=== PATIENT | male | born 1995 | race Caucasian/White ===

== ENCOUNTER 2016-09-20 07:10 | Emergency (ER) | payer OTHER ==
[2016-09-20 07:14] VITALS: BP 133/82; PULSE 70; RESP 16; TEMP 97.5; O2SAT 95
--- NOTE | 2016-09-20 07:18 | EDPHY ---
H & P Stated Complaint: cough/mucus Time Seen by Provider: 09/20/16 07:12 HPI/ROS: CHIEF COMPLAINT: Productive cough HISTORY OF PRESENT ILLNESS: The patient presents to the ED with a 2 day history of productive cough and mild dyspnea. The patient denies significant past medical history. He denies fever or sore throat. The patient reports moderate symptoms. The patient denies asymmetric calf pain or swelling. He denies history of fall or trauma. REVIEW OF SYSTEMS: A comprehensive 10 point review of systems is otherwise negative aside from elements mentioned in the history of present illness. Source: Patient Exam Limitations: No limitations - Personal History Current Tetanus/Diphtheria Vaccine: Yes - Medical/Surgical History Hx Asthma: No Hx Chronic Respiratory Disease: No Hx Diabetes: No Hx Cardiac Disease: No Hx Renal Disease: No Hx Cirrhosis: No Hx Alcoholism: No Hx HIV/AIDS: No Hx Splenectomy or Spleen Trauma: No Other PMH: denies - Social History Smoking Status: Current some day smoker - Physical Exam Exam: General Appearance: Alert, no distress Eyes: Pupils equal and round no pallor or injection ENT, Mouth: Mucous membranes moist Respiratory: Rhonchorous breath sounds right lung base Cardiovascular: Regular rate and rhythm Gastrointestinal: Abdomen is soft and nontender, no masses, bowel sounds normal Neurological: A&O, normal motor function, normal sensory exam, normal cranial nerves Skin: Warm and dry, no rashes Musculoskeletal: Neck is supple nontender Extremities: symmetrical, full range of motion Constitutional: Initial Vital Signs Temperature (C) 36.4 C 09/20/16 07:11 Heart Rate 70 09/20/16 07:11 Respiratory Rate 16 09/20/16 07:11 Blood Pressure 133/82 H 09/20/16 07:11 O2 Sat (%) 95 09/20/16 07:11 O2 Delivery Mode Room Air Allergies/Adverse Reactions: No Allergies [NKDA] Allergy (Verified 09/20/16 07:11) Home Medications: Medication Instructions Recorded AZITHROMYCIN [Z-PACK] 250 mg PO DAILY #1 packet 09/20/16 Albuterol [Ventolin Hfa Inhaler] 2 puffs IH QID PRN #1 mdi 09/20/16 Medical Decision Making ED Course/Re-evaluation: The patient presents to the ED with a bronchitis versus early subtle basilar pneumonia. The patient will be started on antibiotics and given a prescription for an albuterol inhaler. The patient is instructed to return to the ED for worsening symptoms or other concerns. The patient does have stable vital signs the emergency department. There is nothing to suggest a significant pneumonia based upon his vital signs. The patient has nothing to suggest traumatic injury such as pneumothorax based upon his history. Differential Diagnosis: Differential diagnosis considered includes asthma, bronchitis, pneumonia Departure - Departure Disposition: Home, Routine, Self-Care Condition: Good Instructions: Acute Bronchitis (ED) Additional Instructions: 1. Please take antibiotics as directed. 2. Please use inhaler to every 4 hours as needed for cough. 3. Please return to the ED for markedly worsening symptoms or other concerns. Referrals: NONE *PRIMARY CARE P,. [Primary Care Provider] - As per Instructions
== END 2016-09-20 07:35 | disposition home or self-care (01) ==
DX: J20.9 Acute bronchitis, unspecified (principal); F17.200 Nicotine dependence, unspecified, uncomplicated

== ENCOUNTER 2017-09-01 17:43 | Emergency (ER) | payer OTHER ==
[2017-09-01 17:54] VITALS: BP 125/74
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
== END 2017-09-01 19:09 | disposition home or self-care (01) ==
DX: S60.221A Contusion of right hand, initial encounter (principal); F17.200 Nicotine dependence, unspecified, uncomplicated; W22.8XXA Striking against or struck by other objects, initial encounter; Y99.8 Other external cause status
CPT/HCPCS: A4565

== ENCOUNTER 2018-06-03 15:09 | Emergency (ER) | payer OTHER ==
[2018-06-03] MEDS ORDERED: ONDANSETRON 4 MG/2 ML VIAL ONE (15:35)
[2018-06-03] MEDS ORDERED: NS 1,000 ML IV ONE ×3 (15:36→16:59)
[2018-06-03] MEDS ORDERED: ONDANSETRON 4 MG/2 ML VIAL IVP ONE (15:36)
[2018-06-03] MEDS ORDERED: fentaNYL 100 MCG/2 ML INJ IVP ONE (15:57)
[2018-06-03] MEDS ORDERED: KETOROLAC 15 MG/1 ML SDV IVP ONE (15:57)
--- NOTE | 2018-06-03 16:00 | EDPHY ---
H & P Stated Complaint: n/v/abd pain Time Seen by Provider: 06/03/18 15:36 HPI/ROS: HPI The patient presents with abdominal pain, nausea, vomiting, diarrhea. He was feeling well earlier in the day today, ate a breakfast burrito. At noon he had quick onset of stomach pain which was sharp and diffuse quickly followed by nausea, vomiting, diarrhea. The nausea is nonbloody, nonbilious. The diarrhea is watery. He is having episodes of vomiting and diarrhea occurring about every 10 min now. He generally feels chilled though has not had a fever. His pain is in his right upper quadrant and right flank and is sharp in nature and intermittent. There are no alleviating or exacerbating factors. He rates the pain as severe.. REVIEW OF SYSTEMS 10 systems were reviewed and negative with the exception of the elements mentioned in the history of present illness. PMHx: Healthy, no diabetes, no hypertension Soc Hx: [employer] student PHYSICAL General Appearance: Alert, no distress Eyes: Pupils equal and round no pallor or injection ENT, Mouth: Mucous membranes dry Respiratory: Hyperventilating, There are no retractions, lungs are clear to auscultation Cardiovascular: Regular rate and rhythm Gastrointestinal: Abdomen is soft and non-tender, no masses, bowel sounds normal , no flank tenderness bilaterally Neurological: A&O, moves all extremities Skin: Warm and dry, no rashes Musculoskeletal: Neck is supple non tender Extremities: symmetrical, full range of motion Psychiatric: Patient is oriented X 3, there is no agitation Source: Patient Exam Limitations: No limitations - Personal History Current Tetanus/Diphtheria Vaccine: Yes Current Tetanus Diphtheria and Acellular Pertussis (TDAP): Yes - Medical/Surgical History Hx Asthma: No Hx Chronic Respiratory Disease: No Hx Diabetes: No Hx Cardiac Disease: No Hx Renal Disease: No Hx Cirrhosis: No Hx Alcoholism: No Hx HIV/AIDS: No Hx Splenectomy or Spleen Trauma: No Other PMH: denies - Social History Smoking Status: Current some day smoker Constitutional: Initial Vital Signs Temperature (C) 36.8 C 06/03/18 15:17 Heart Rate 91 06/03/18 15:17 Respiratory Rate 30 H 06/03/18 15:17 Blood Pressure 75/67 L 06/03/18 15:17 O2 Sat (%) 96 06/03/18 15:17 O2 Delivery Mode Room Air Allergies/Adverse Reactions: No Allergies [NKDA] Allergy (Verified 06/03/18 15:16) Home Medications: Medication Instructions Recorded Ondansetron Odt [Zofran Odt 4 mg 4 mg PO Q4 PRN #10 tab 06/03/18 (*)] Medical Decision Making Differential Diagnosis: This is a 22-year-old male who presents with about 4 hr of nausea, vomiting, diarrhea, abdominal pain. Here, he is hypotensive, he does have abdominal pain though abdominal exam is benign. He appears dry. Plan for IV fluids, medication for his emesis and pain. We will check basic labs. Differential diagnosis includes gastroenteritis, biliary colic, cholecystitis, renal colic. In the emergency department, patient ultimately received a total of 3 L of IV fluid. He was able to provide a urine sample which showed 1+ ketones without any hematuria. Labs were otherwise unremarkable. He appeared to be hemoconcentrated on his CBC. He does have a leukocytosis which could be related to an infectious gastroenteritis or stress response vomiting. He was observed for about 3 hr in the ER. He was able to tolerate fluids. He had no ongoing abdominal pain or tenderness on exam. He felt comfortable being discharged and was sent home with his roommate. He will be given a prescription for Zofran. - Data Points Laboratory Results: Laboratory Results 06/03/18 15:25 06/03/18 15:25 06/03/18 06/03/18 06/03/18 18:40 15:25 15:25 WBC 16.65 10^3/uL H 10^3/uL (3.80-9.50) RBC 5.62 10^6/uL 10^6/uL (4.40-6.38) Hgb 18.0 g/dL H g/dL (13.7-17.5) Hct 51.3 % H % (40.0-51.0) MCV 91.3 fL fL (81.5-99.8) MCH 32.0 pg pg (27.9-34.1) MCHC 35.1 g/dL g/dL (32.4-36.7) RDW 13.0 % % (11.5-15.2) Plt Count 278 10^3/uL 10^3/uL (150-400) MPV 8.8 fL fL (8.7-11.7) Neut % (Auto) 87.3 % H % (39.3-74.2) Lymph % (Auto) 5.5 % L % (15.0-45.0) [place] % (Auto) 6.5 % % (4.5-13.0) Eos % (Auto) 0.2 % L % (0.6-7.6) Baso % (Auto) 0.2 % L % (0.3-1.7) Nucleat RBC Rel Count 0.0 % % (0.0-0.2) Absolute Neuts (auto) 14.53 10^3/uL H 10^3/uL (1.70-6.50) Absolute Lymphs (auto) 0.91 10^3/uL L 10^3/uL (1.00-3.00) Absolute Monos (auto) 1.09 10^3/uL H 10^3/uL (0.30-0.80) Absolute Eos (auto) 0.03 10^3/uL 10^3/uL (0.03-0.40) Absolute Basos (auto) 0.04 10^3/uL 10^3/uL (0.02-0.10) Absolute Nucleated RBC 0.00 10^3/uL 10^3/uL (0-0.01) Immature Gran % 0.3 % % (0.0-1.1) Immature Gran # 0.05 10^3/uL 10^3/uL (0.00-0.10) Sodium 139 mEq/L mEq/L (135-145) Potassium 4.0 mEq/L mEq/L (3.5-5.2) Chloride 106 mEq/L mEq/L (97-110) Carbon Dioxide 20 mEq/l L mEq/l (22-31) Anion Gap 13 mEq/L mEq/L (6-14) BUN 17 mg/dL mg/dL (7-23) Creatinine 0.9 mg/dL mg/dL (0.7-1.3) Estimated GFR > 60 Glucose 136 mg/dL H mg/dL (70-100) Calcium 10.0 mg/dL mg/dL (8.5-10.4) Total Bilirubin 1.1 mg/dL mg/dL (0.1-1.4) AST 20 IU/L IU/L (17-59) ALT 29 IU/L IU/L (21-72) Alkaline Phosphatase 92 IU/L IU/L (38-126) Total Protein 8.3 g/dL H g/dL (6.3-8.2) Albumin 5.0 g/dL g/dL (3.5-5.0) Lipase 158 IU/L IU/L (23-300) Urine Color YELLOW Urine Appearance HAZY Urine pH 6.0 (5.0-7.5) Ur Specific [place] 1.026 (1.002-1.030) Urine Protein NEGATIVE (NEGATIVE) Urine Ketones 1+ H (NEGATIVE) Urine Blood NEGATIVE (NEGATIVE) Urine Nitrate NEGATIVE (NEGATIVE) Urine Bilirubin NEGATIVE (NEGATIVE) Urine Urobilinogen NEGATIVE EU EU (0.2-1.0) Ur Leukocyte Esterase NEGATIVE (NEGATIVE) Urine Glucose NEGATIVE (NEGATIVE) Medications Given: Discontinued Medications Fentanyl (Sublimaze) 50 mcg IVP EDNOW ONE Stop: 06/03/18 15:58 Last Admin: 06/03/18 16:03 Dose: 50 mcg Sodium Chloride (Ns) 1,000 mls @ 3,000 mls/hr IV ONCE ONE Stop: 06/03/18 15:55 Last Admin: 06/03/18 15:37 Dose: 1,000 mls Sodium Chloride (Ns) 1,000 mls @ 0 mls/hr IV EDNOW ONE; Wide Open PRN Reason: Protocol Stop: 06/03/18 16:00 Last Admin: 06/03/18 16:04 Dose: 1,000 mls Sodium Chloride (Ns) 1,000 mls @ 0 mls/hr IV EDNOW ONE; Wide Open PRN Reason: Protocol Stop: 06/03/18 17:00 Last Admin: 06/03/18 17:54 Dose: 1,000 mls Ketorolac Tromethamine (Toradol) 15 mg IVP EDNOW ONE Stop: 06/03/18 15:58 Last Admin: 06/03/18 16:04 Dose: 15 mg Ondansetron HCl (Zofran) 4 mg IVP EDNOW ONE Stop: 06/03/18 15:37 Last Admin: 06/03/18 15:37 Dose: 4 mg Departure - Departure Disposition: Home, Routine, Self-Care Clinical Impression: Nausea & vomiting Qualifiers: Vomiting type: unspecified Vomiting Intractability: non-intractable Qualified Code(s): R11.2 - Nausea with vomiting, unspecified Diarrhea Qualifiers: Diarrhea type: unspecified type Qualified Code(s): R19.7 - Diarrhea, unspecified Condition: Good Instructions: Acute Nausea and Vomiting (ED) Additional Instructions: Please make sure to drink small amounts of clear fluids several times an hour. Return to the ER if your worse in any way. Referrals: [facility],. [Clinic] - As per Instructions Stand Alone Forms: School Excuse Prescriptions: Ondansetron Odt [Zofran Odt 4 mg (*)] 4 mg PO Q4 PRN #10 tab PRN Reason: Nausea/Vomiting, Can'T Take Po
[2018-06-03 16:10] LABS: PLATELET COUNT 278 10^3/uL (150-400)
[2018-06-03 18:56] VITALS: BP 110/75
[2018-06-03] MEDS ORDERED: ONDANSETRON 4MG PREPACK#2 BTL TAKEHOME ONE (19:04)
== END 2018-06-03 19:20 | disposition home or self-care (01) ==
DX: R11.2 Nausea with vomiting, unspecified (principal); R19.7 Diarrhea, unspecified; R10.9 Unspecified abdominal pain; E86.9 Volume depletion, unspecified
CPT/HCPCS: 96374; J1885; J2405; J3010